=== PATIENT | female | born 1965 | race African-American/Black ===

== ENCOUNTER 2017-08-21 10:32 | Outpatient (CLI) | payer BC ==
--- NOTE | 2017-08-21 12:22 | MMO ---
BILATERAL MAMMOGRAMS: DATE: 08/21/17 HISTORY: Screening mammography. COMPARISON: 07/10/14. FINDINGS: Scattered fibroglandular densities are again demonstrated. No dominant mass or suspicious calcificati ons. The study was evaluated with the assistance of computer-aided detection. IMPRESSION: BIRADS 1: Negative Suggest routine follow-up. POS: SANDEEP
== END 2017-08-21 10:33 | disposition home or self-care (01) ==
LOC: SCSMAMMO 10:32
PROVIDERS: ATTEND Family Medicine
DX: Z12.31 Encounter for screening mammogram for malignant neoplasm of breast (principal)
CPT/HCPCS: 77067

== ENCOUNTER 2018-09-11 09:34 | Outpatient (CLI) | payer BC ==
--- NOTE | 2018-09-11 22:31 | MMO ---
Bilateral MAMMO Bilat Screen DDI. CLINICAL HISTORY: Patient is 53 years old and is seen for screening. The patient has the following family history of breast cancer: aunt, malignant (generic). The patient has no personal history of cancer. VIEWS: The views performed were: bilateral craniocaudal and bilateral mediolateral oblique. FILMS COMPARED: The present examination has been compared to prior imaging studies performed at [facility] on 07/10/2014 and 08/21/2017, and at [facility] on 09/29/2006, 11/01/2007 and 03/05/2010. This study has been interpreted with the assistance of computer-aided detection. MAMMOGRAM FINDINGS: There are scattered fibroglandular densities. There are no suspicious masses, suspicious calcifications, or new areas of architectural distortion. IMPRESSION: THERE IS NO MAMMOGRAPHIC EVIDENCE OF MALIGNANCY. A ROUTINE FOLLOW-UP MAMMOGRAM IN 1 YEAR IS RECOMMENDED. ACR BI-RADS Category 1 - Negative MAMMOGRAPHY NOTE: 1. A negative mammogram report should not delay a biopsy if a dominant of clinically suspicious mass is present. 2. Approximately 10% to 15% of breast cancers are not detected by mammography. 3. Adenosis and dense breasts may obscure an underlying neoplasm.
== END 2018-09-11 09:35 | disposition home or self-care (01) ==
LOC: SCSMAMMO 09:34
PROVIDERS: ATTEND Family Medicine
DX: Z12.31 Encounter for screening mammogram for malignant neoplasm of breast (principal); Z80.3 Family history of malignant neoplasm of breast
CPT/HCPCS: 77067

== ENCOUNTER 2020-04-04 22:46 | Emergency (ER) | payer BC ==
[2020-04-05] MEDS ORDERED: Ketorolac Tromethamine 30 MG/ML VIAL ONE (01:18)
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
== END 2020-04-05 02:30 | disposition home or self-care (01) ==
LOC: ERS 22:46
DX: M25.512 Pain in left shoulder (principal); M54.2 Cervicalgia; R51.9 Headache, unspecified; E11.9 Type 2 diabetes mellitus without complications; V49.50XA Passenger injured in collision with unspecified motor vehicles in traffic accident, initial encounter; Y92.411 Interstate highway as the place of occurrence of the external cause
CPT/HCPCS: 70450; 71045; 72125; 96372; J1885